=== PATIENT | female | born 1955 | race Caucasian/White ===

== ENCOUNTER 2020-10-05 15:25 | Emergency (ER) | payer MEDICARE, SELFPAY ==
--- NOTE | ~2020-10-05 | XR_ITS ---
XR hip RT min 2V DATE: 10/05/2020 16:12 INDICATION: Dull achy right hip pain since 10/02/2020. No known injury. TECHNIQUE: AP and lateral views of right hip COMPARISON: None FINDINGS: Moderate osteopenia is suggested. No fracture or dislocation, avascular necrosis or bone de struction. Right hip joint space appears relatively well preserved. The pubic symphysis and sacroilia c joints appear intact. IMPRESSION: No fracture or dislocation or bone destruction or significant degenerative change of righ t hip Reviewed, dictated and finalized at location A. SOFTWARE [employer] IMPRESSION: No fracture or dislocation or bone destruction or significant degen erative change of right hip
[2020-10-05 15:40] VITALS: BP 174/78; PULSE 68; RESP 20; TEMP 36.6; O2SAT 98
[2020-10-05 15:59] VITALS: BP 174/78; PULSE 68; RESP 20; TEMP 36.6; O2SAT 98
--- NOTE | 2020-10-05 16:05 | ED.GENADULT ---
HPI - General Adult General Chief complaint: Extremity Injury, Lower Stated complaint: right hip and leg pain Time Seen by Provider: 10/05/20 16:06 Source: patient and RN notes reviewed Mode of arrival: ambulatory (with cane with 3 legs) Limitations: no limitations History of Present Illness HPI narrative: 65-year-old female presents with complaints of right hip pain for the past 3 days. Krista reports talking on phone and when she got up to walk pain started, pain continue to increase daily causing her to use cane to assist with ambulation. Denies any known injury or falls. Ibuprofen last on Monday10/02/20, Tylenol last today at 13:30, and routine Opium with little relief. Denies radiation of pain. No numbness or tingling or bleeding. No swelling. No loss of mobility. Exacerbating factor consist of being weight and movement. Relieving factors consists of medications and pulling leg upward while sitting. Denies recent travel or long car rides. History of DVT or PE. No chest pain or dyspnea. Remains active. The patient reports she have not been diagnosed with COVID-19. The patient reports she is not waiting for the results of a COVID-19 lab test. The patient reports she do not have fever, chills, weakness, fatigue, myalgia, or facial swelling. The patient reports she do not have a new or worsening cough or shortness of breath. Denies chest pain. The patient reports she do not have any rhinorrhea, congestion, sore throat, nausea, vomiting, abdominal pain, and diarrhea. Tolerating po intake well. Denies concerns for COVID-19 or exposures been home with limited outdoor exposure except for essential household needs and return home. At this time, patient is not suspected of having COVID-19. Some parts of this dictation were generated by voice recognition software and may contain typographical and/or grammatical inaccuracies. Related Data Home Medications Medication Instructions Recorded Confirmed alprazolam 0.5 mg PO BID 10/05/20 10/05/20 diphenoxylate-atropine 1 tablet PO TID 10/05/20 10/05/20 hydrochlorothiazide 25 mg PO DAILY 10/05/20 10/05/20 metoprolol tartrate 100 mg PO Q12H 10/05/20 10/05/20 opium tincture 0.6 ml PO Q6H PRN 10/05/20 10/05/20 Allergies Allergy/AdvReac Type Severity Reaction Status Date / Time No Known Allergies Allergy Verified 10/05/20 15:51 Review of Systems Review of Systems: Narrative: CONSTITUTIONAL: Denies fever, chills, sweats. EYES: Denies visual changes, redness, discharge. ENT: Denies rhinorrhea, congestion, sore throat, otalgia. CARDIOVASCULAR: Denies chest pain, palpitations, edema. RESPIRATORY: Denies dyspnea, wheezing, cough. GASTROINTESTINAL: Denies abdominal pain, nausea, vomiting, diarrhea. GENITOURINARY: Denies dysuria, hematuria, abnormal discharge SKIN: Denies rash or itching. MUSCULOSKELETAL: Denies acute back pain or myalgia. Complains of Right hip pain. NEUROLOGIC: Denies numbness or focal weakness. PSYCHIATRIC: Denies anxiety or depression. All systems reviewed & are unremarkable except as noted in HPI and below. [facility] Past Medical History Medical History (Updated 10/06/20 @ 00:00 by Kymberly Flood) Anxiety delivery delivered X1 History of vaginal delivery X1 Hypertension Lower GI bleed Obesity Ulcerative colitis with complication Surgical History Surgical History (Updated 10/05/20 @ 16:25 by PRANAV Mclean) H/O section Due to placental rupture History of colon surgery Has a man made pouch and rectum-1994 History of colonoscopy Family History Family History (Updated 10/05/20 @ 16:26 by PRANAV Mclean) Father Heart disease Mother Unknown family medical history Social History Social History (Updated 10/08/20 @ 14:06 by PRANAV Mclean) Smoking status: Never smoker Tobacco type: cigarettes Second hand tobacco smoke exposure: No Alcohol intake: never Substance use: cu
[2020-10-05] MEDS: KETOROLAC (*BKC) 60 MG/2 ML VIAL IM (16:28)
== END 2020-10-05 16:48 | disposition home or self-care (01) ==
PROVIDERS: Emergency Provider Nurse Practitioner Family; PCP Family Medicine
DX: M25.551 Pain in right hip (principal); F41.9 Anxiety disorder, unspecified; I10 Essential (primary) hypertension
CPT/HCPCS: 73502; 96372; 99213; G0463; J1885